=== PATIENT | male | born 1975 | race Caucasian/White ===

== ENCOUNTER 2017-06-16 07:11 | Outpatient (CLI) ==
[2016-01-22 14:09] VITALS: BMI 33.7
--- NOTE | 2017-06-16 09:13 | US ---
Exam: Burks-scale and color Doppler ultrasonographic evaluation of the abdomen. Limited abdominal ultrasound Comparison: CT abdomen pelvis performed 03/21/2015. Reason for exam: Elevated liver enzymes. FINDINGS: The liver measures approximately 15 cm in length with a fatty appearing echotexture. Ther e is normal antegrade portal venous flow without perihepatic free fluid. There is a 1.93 x 1.53 x 1.4 2 echogenic region adjacent to the gallbladder in the hepatic parenchyma that likely represents focal fatty sparing. The partially imaged gallbladder has no obvious intraluminal stone, sludge or polyp. Image interpret ation of the gallbladder is limited by overlying bowel gas. The gallbladder wall measures 0.26 cm wh ich is within normal limits. The common bile duct measures 0.44 cm without intraluminal stone or polyp. The partially imaged pancreas appears grossly unremarkable without ductal dilatation. The right kidney is not well seen secondary to overlying bowel gas. Impression: Limited evaluation secondary to overlying bowel gas with hepatic steatosis. There is a 1.93 cm echo genic region adjacent the gallbladder fossa which likely represents focal fatty sparing. If clinical concern exists, repeat imaging may be performed.
== END 2017-06-16 07:12 | disposition home or self-care (01) ==
LOC: RAD 07:11
PROVIDERS: ATTEND Physician Assistant
DX: R74.8 Abnormal levels of other serum enzymes (principal)

== ENCOUNTER 2017-06-21 08:08 | Outpatient (CLI) | payer OTHER ==
[2016-01-22 14:09] VITALS: BMI 33.7
--- NOTE | 2017-06-21 10:12 | CT ---
EXAM: CT abdomen with and without contrast. CT pelvis with and without contrast. HISTORY: Skin disorder of the umbilicus. Umbilical pain and bleeding. COMPARISON: Ultrasound 06/16/2017. CT 03/21/2015. TECHNIQUE: Multiple axial images of the abdomen and pelvis were obtained prior to and following intr avenous administration of 75 mL of Omnipaque 350, low osmolar. Images reformatted in the coronal mitchell ne. FINDINGS: Trace bilateral pleural effusions are present. No acute osseous abnormality detected. The liver, gallbladder, pancreas, spleen, adrenal glands, and kidneys are unremarkable. The bowel is normal in course and caliber without evidence for obstruction or inflammatory process. The appendix is normal. Urinary bladder is unremarkable. No free fluid, free air or lymphadenopathy identified. No periumbilical edema or fluid collections identified. There is no evidence for commu nication between intraperitoneal structures and the umbilicus. IMPRESSION: No periumbilical abnormality by CT. No acute abnormality within the abdomen or pelvis.
== END 2017-06-21 08:09 | disposition home or self-care (01) ==
LOC: RAD 08:08
PROVIDERS: ATTEND Physician Assistant
DX: L98.9 Disorder of the skin and subcutaneous tissue, unspecified (principal)

== ENCOUNTER 2017-06-22 08:49 | Outpatient (CLI) ==
[2016-01-22 14:09] VITALS: BMI 33.7
--- NOTE | 2017-06-22 09:23 | DI ---
1 EXAM: Two-view chest HISTORY: Abnormal CT, periumbilical pain COMPARISON: CT scan 06/21/2017 FINDINGS: The cardiomediastinal silhouette is normal. The lungs are clear bilaterally. There is no evidence of infiltrate or effusion. No osseous abnormalities identified. IMPRESSION: No evidence of active pulmonary disease.
== END 2017-06-22 08:50 | disposition home or self-care (01) ==
LOC: RAD 08:49
PROVIDERS: ATTEND Physician Assistant
DX: R93.8 Abnormal findings on diagnostic imaging of other specified body structures (principal)

== ENCOUNTER 2017-06-22 16:42 | Emergency (ER) | payer OTHER ==
[2017-06-22 16:59] VITALS: BP 154/92; TEMP 98.9; BMI 29.9
--- NOTE | 2017-06-22 17:31 | ED.PDOC ---
General ED Provider: Dr. ADRYAN LTOT Chief Complaint: Non-specific Complaint Stated Complaint: Seen by primary care provider over last several days with workup. Mother was called today by PCP and told to go to ER immediately because of high white blood cell count. Time Seen by Physician: 17:10 Mode of Arrival: Walk-In Information Source: Patient, Family Exam Limitations: No limitations Primary Care Provider: RAMIRO FERRO Nursing and Triage Documentation Reviewed and Agree: Yes Review of Systems - Review Of Systems Constitutional: Reports: No symptoms Respiratory: Reports: No symptoms. Denies: Cough Skin: Reports: No symptoms All Other Systems: Reviewed and Negative Past Medical History - Past Medical History Previously Healthy: Yes (Reported [place] pt to have had high blood count previously) Endocrine: Reports: None Cardiovascular: Reports: Hypertension Respiratory: Reports: None Hematological: Reports: None Gastrointestinal: Reports: None Genitourinary: Reports: None Neuro/Psych: Reports: Anxiety, Schizophrenia Musculoskeletal: Reports: None Cancer: Reports: None - Surgical History General Surgical History: Reports: None - Family History Family History: Reports: None - Social History Smoking Status: Current every day smoker Hx Substance Use: No Alcohol Screening: None - Immunizations Tetanus Shot up to Date: Yes Physical Exam - Physical Exam Appearance: Well-appearing Eyes: MARY, EOMI ENT: Oropharynx normal Neck: Supple Respiratory: Airway patent, Breath sounds clear, Breath sounds equal Cardiovascular: RRR, Pulses normal GI/: Soft, Nontender Musculoskeletal: Normal strength, ROM intact, No edema Skin: Warm, Dry, Normal color Neurological: Sensation intact, Motor intact, Alert, Oriented Psychiatric: Affect appropriate (Hesitant speach at times but is otherwise articulate and appears to have good memory for events), Mood appropriate Interpretation - Radiology Interpretation Radiology Interpretation By: ED Physician Radiology Results: Negative Exam Interpreted: CXR Critical Care Note - Critical Care Note Total Time (mins): 15 Course - Course Hematology/Chemistry: 06/22/17 17:47 06/22/17 17:47 Orders, Labs, Meds: Lab Review 06/22/17 06/22/17 06/22/17 17:47 17:47 17:47 WBC 14.61 H RBC 5.79 Hgb 17.3 Hct 49.0 MCV 84.6 MCH 29.9 MCHC 35.3 RDW Coeff of Jenaro 12.5 Plt Count 284 Immature Gran % (Auto) 0.6 Neut % (Auto) 70.8 Lymph % (Auto) 16.4 [place] % (Auto) 6.8 Eos % (Auto) 4.9 Baso % (Auto) 0.5 Immature Gran # (Auto) 0.1 Neut # 10.4 H Lymph # 2.4 [place] # 1.0 Eos # 0.7 Baso # 0.1 Sodium 140 Potassium 3.8 Chloride 105 Carbon Dioxide 20 L Anion Gap 18.8 BUN 10 Creatinine 0.73 Estimated GFR (MDRD) 117.00 BUN/Creatinine Ratio 13.69 Glucose 104 H Lactic Acid Calcium 9.8 Total Bilirubin 0.45 AST 16 ALT 14 Alkaline Phosphatase 72 Total Protein 7.9 Albumin 4.2 Globulin 3.7 Albumin/Globulin Ratio 1.14 Procalcitonin < 0.05 Urine Color Urine Clarity Urine pH Ur Specific [place] Urine Protein Urine Glucose (UA) Urine Ketones Urine Blood Urine Nitrite Urine Bilirubin Urine Urobilinogen Ur Leukocyte Esterase 06/22/17 06/22/17 17:47 17:57 WBC RBC Hgb Hct MCV MCH MCHC RDW Coeff of [place] Plt Count Immature Gran % (Auto) Neut % (Auto) Lymph % (Auto) [place] % (Auto) Eos % (Auto) Baso % (Auto) Immature Gran # (Auto) Neut # Lymph # [place] # Eos # Baso # Sodium Potassium Chloride Carbon Dioxide Anion Gap BUN Creatinine Estimated GFR (MDRD) BUN/Creatinine Ratio Glucose Lactic Acid 6.4 Calcium Total Bilirubin AST ALT Alkaline Phosphatase Total Protein Albumin Globulin Albumin/Globulin Ratio Procalcitonin Urine Color Yellow Urine Clarity Clear Urine pH 6.0 Ur Specific [place] 1.010 Urine Protein Negative Urine Glucose (UA) Negative Urine Ketones 2+ Urine Blood Negative Urine Nitrite Negative Urine Bilirubin Negative Urine Urobilinogen 0.2 Ur Leukocyte Esterase Negative Orders Category Date Time Status IV ACCESS ONCE CARE 06/22/17 17:29 Active ED APPLY O2 .ONCE EMERGENCY 06/22/17 17:29 Active ED WOOD GOUGER APPLIED .ONCE EMERGENCY 06/22/17 17:29 Active ED VITAL SIGNS Q1HR EMERGENCY 06/22/17 17:29 Active BLOOD CULTURE Stat LAB 06/22/17 18:15 Received CBC W/ AUTO DIFF Stat LAB 06/22/17 17:47 Completed COMPREHENSIVE METABOLIC PANEL Stat LAB 06/22/17 17:47 Completed LACTIC ACID Stat LAB 06/22/17 17:47 Completed PROCALCITONIN Stat LAB 06/22/17 17:47 Completed URINALYSIS C & S IF INDICATED Stat LAB 06/22/17 17:57 Completed CHEST, 1V AP ONLY Stat RADS 06/22/17 17:29 Taken Vital Signs: Temp Pulse Resp BP Pulse Ox 06/22/17 16:43 98.9 F 107 H 24 154/92 H 96 Departure - Departure Time of Disposition: 19:41 Disposition: HOME SELF-CARE Discharge Problem: Leucocytosis Qualifiers: Leukocytosis type: bandemia Qualified Code(s): D72.825 - Bandemia Instructions: Leukocytosis (ED) Condition: Good Pt referred to PMD for follow-up: Yes Additional Instructions: Follow up with primary care provider; continue your antibiotics. Allergies/Adverse Reactions: Allergies Penicillins Allergy (Mild, Verified 01/22/16 14:18) Rash Home Medications: Ambulatory Orders Olanzapine [Zyprexa] 10 mg PO BEDTIME #30 05/19/16 Paliperidone Palmitate [Invega Sustenna] 234 mg IM MONTHLY #1 05/19/16 Linagliptin [Tradjenta] 5 mg PO DAILY 06/22/17 Lisinopril 10 mg PO DAILY 06/22/17 Metformin HCl [Metformin HCl ER] 500 mg PO BID 06/22/17 Oxcarbazepine [Trileptal] 150 mg PO TID 06/22/17 Rosuvastatin Calcium [Crestor] 5 mg PO DAILY MDD ` 06/22/17
[2017-06-22 17:51] LABS: BASOPHILS # (AUTO) 0.1 K/uL (0-0.2); BASOPHILS % (AUTO) 0.5 % (0.0-3.0); EOSINOPHILS # (AUTO) 0.7 K/ul (0.0-0.7); EOSINOPHILS % (AUTO) 4.9 % (0.0-7.0); HEMOGLOBIN 17.3 g/dl (14.0-18.0); IMMATURE GRANULOCYTE % (AUTO) 0.6 % (0.0-5.0); LYMPHOCYTES # (AUTO) 2.4 K/uL (0.60-3.4); LYMPHOCYTES % (AUTO) 16.4 (10.0-50.0); MEAN CORPUSCULAR HEMOGLOBIN 29.9 pg (27.0-31.0); MEAN CORPUSCULAR HGB CONC 35.3 (31.8-35.4); MEAN CORPUSCULAR VOLUME 84.6 fl (80.0-94.0); MONOCYTES % (AUTO) 6.8 (0-10); NEUTROPHILS # (AUTO) 10.4 K/ul (2.0-6.9); NEUTROPHILS % (AUTO) 70.8; PLATELET COUNT 284 10^3/uL (140-440); RED BLOOD COUNT 5.79 10^6/ul (4.70-6.10); WHITE BLOOD COUNT 14.61 K/ul (4.2-10.2)
[2017-06-22 18:06] LABS: BILIRUBIN,URINE Negative (NEGATIVE); KETONES,URINE 2+ (NEGATIVE); LEUKOCYTE ESTERASE ,URINE Negative (NEGATIVE); NITRITE,URINE Negative (NEGATIVE); PROTEIN,URINE Negative (NEGATIVE); URINE, BLOOD Negative (NEGATIVE)
[2017-06-22 18:07] LABS: ADD URINE MICROSCOPIC NO
[2017-06-22 18:14] LABS: ALBUMIN 4.2 g/dL (3.4-5.0); ALBUMIN/GLOBULIN RATIO 1.14; ANION GAP 18.8; BILIRUBIN,TOTAL 0.45 mg/dL (0.00-1.20); BUN/CREATININE RATIO 13.69; CALCIUM 9.8 mg/dL (8.2-10.2); CREATININE 0.73 mg/dL (0.60-1.10); POTASSIUM 3.8 mmol/L (3.5-5.1); TOTAL PROTEIN 7.9 g/dL (6.4-8.2)
--- NOTE | 2017-06-23 07:50 | DI ---
EXAM: Portable chest HISTORY: Sepsis COMPARISON: Two-view chest performed the same day views: The cardiomediastinal silhouette is normal. The lungs are clear bilaterally. There is no evidence of infiltrate or effusion. FINDINGS: IMPRESSION: No evidence of active pulmonary disease
== END 2017-06-22 19:54 | disposition home or self-care (01) ==
LOC: ED 16:42
DX: D72.825 Bandemia (principal); F17.210 Nicotine dependence, cigarettes, uncomplicated; Z79.899 Other long term (current) drug therapy
CPT/HCPCS: 36415; 80053; 81001; 83605; 84145; 85025; 87040; 99284